=== PATIENT | female | born 1965 | race Caucasian/White ===

== ENCOUNTER → 2016-09-21 | Outpatient (CLI) | payer OTHER | LOC: FIMAGING 15:47 | PROVIDERS: ATTEND Obstetrics & Gynecology Gynecology | DX: Z12.31 Encounter for screening mammogram for malignant neoplasm of breast (principal) | CPT/HCPCS: G0202 ==

== ENCOUNTER → 2017-05-28 | Outpatient (CLI) | payer OTHER | LOC: FIMAGING 08:29 | PROVIDERS: ATTEND Internal Medicine | DX: F45.8 Other somatoform disorders (principal) ==

== ENCOUNTER → 2017-07-05 | Outpatient (CLI) | payer OTHER ==
[~2017-07-05] MED LIST: IOPAMIDOL (ISOVUE 370) 100 ML BTL IV ONE
== END ==
LOC: FIMAGING 15:55
PROVIDERS: ATTEND Internal Medicine
DX: R13.19 Other dysphagia (principal); Q27.8 Other specified congenital malformations of peripheral vascular system; M25.78 Osteophyte, vertebrae
CPT/HCPCS: Q9967

== ENCOUNTER → 2017-09-28 | Outpatient (CLI) | payer OTHER | DX: Z12.31 Encounter for screening mammogram for malignant neoplasm of breast (principal) ==

== ENCOUNTER 2018-04-27 12:23 | Observation (INO) | payer OTHER ==
[2018-04-27] MEDS ORDERED: NS 500 ML IV ONE (13:10)
[2018-04-27] MEDS ORDERED: ONDANSETRON 4 MG/2 ML VIAL IVP ONE (13:10)
--- NOTE | 2018-04-27 13:30 | EDPHY ---
H & P Time Seen by Provider: 04/27/18 12:57 HPI/ROS: HPI Abdominal pain and bloating. 52-year-old female by private vehicle. This patient reports that since 5:00 p.m. Yesterday she has had a sensation of mid and lower abdominal pain, discomfort and bloating. She reports that this pain localizes to her right lower quadrant. This morning she had nausea with 1 episode of nonbilious, nonbloody vomiting. She has not had diarrhea. She reports that she gave herself an enema this morning and had a satisfying bowel movement without relief. Her last meal was last night. Prior abdominal surgical history includes hysterectomy. Last meal was an avocado at 10:30 a.m. This morning. This consisted of an avocado. ROS: Constitutional: No fever, no chills. No weakness. Eyes: No discharge. No changes in vision. ENT: No sore throat. No nasal congestion or rhinorrhea. Respiratory: No cough. No shortness of breath. Cardiac: No chest pain, no palpitations. Gastrointestinal: As above, no diarrhea. Genitourinary: No hematuria. No dysuria or increased frequency with urination. Musculoskeletal: No back pain. No neck pain. No myalgias or arthralgias. Skin: No rashes. Neurological: No headache. No focal weakness or altered sensation. Past medical history: Hysterectomy. Social history: Nonsmoker. Here by herself. No alcohol. Physical Exam: General Appearance: Alert, no distress. This patient is responding to questions appropriately and in full sentences. This patient appears well- hydrated and well-nourished. Eyes: Pupils equal and round no pallor or injection. No lid edema, erythema or injection. Respiratory: There are no retractions, lungs are clear to auscultation with good air movement bilaterally. Cardiovascular: Regular rate and rhythm. No murmur. Gastrointestinal: Abdomen is soft with mild to moderate right lower quadrant tenderness on palpation, no masses, bowel sounds normal. No focal tenderness at McBurney's point. No Bradshaw sign. Neurological: Motor sensory function is grossly intact. Cranial nerves are normal. Gait is normal. Skin: Warm and dry, no rashes. Musculoskeletal: Neck is supple and nontender. Extremities are symmetrical. All joints range without pain or impingement. Psychiatric: No agitation. No depression. Database: EKG: Imaging: CT abdomen and pelvis with IV contrast: Significant for acute appendicitis. The appendix measures 14 mm in diameter. Marked periappendiceal inflammatory changes and a significant amount of free fluid. Results were discussed with staff radiologist Dr. Kieran Almeida. Procedures: Emergency department course: Triage vital signs reviewed. She is mildly tachycardic. Vital signs are otherwise within normal limits. IV was placed. She was started on IV normal saline with 500 cc to 1 L to be given over the next hour. She declines pain medication at this time. Her presentation is concerning for possible appendicitis. CT imaging to be obtained. She endorses. 2:20 p.m., patient currently comfortable. Blood work reviewed. Patient awaiting CT imaging to evaluate for appendicitis. 3:50 p.m., patient re-evaluated. Results of CT scan discussed with her, diagnosis of appendicitis discussed. Plan for operative management reviewed. General surgery paged. The patient will be given 2 g of IV Mefoxin in the emergency department. 4:00 p.m., spoke with on-call general surgeon Dr. Jamie Almeida. Case discussed with him in detail. He will see this patient in the emergency department shortly. 4:15 p.m., the patient's remaining emergency department course under my care has been uneventful. The patient was admitted under the care of Dr. Almeida in stable condition. Differential Diagnosis: The differential diagnosis on this patient includes but is not limited to constipation, appendicitis, enteritis. This represents a partial list of diagnoses considered. These considerations are based on history, physical exam , past history, reassessment and diagnostic testing. Smoking Status: Never smoked Constitutional: Initial Vital Signs Temperature (C) 37.2 C 04/27/18 12:39 Heart Rate 105 H 04/27/18 12:39 Respiratory Rate 16 04/27/18 12:39 Blood Pressure 112/78 04/27/18 12:39 O2 Sat (%) 97 04/27/18 12:39 O2 Delivery Mode Room Air Allergies/Adverse Reactions: No Known Allergies Allergy (Verified 04/27/18 12:39) Home Medications: Medication Instructions Recorded NK [No Known Home Meds] 01/13/16 Medical Decision Making - Diagnostics Imaging Results: Imaging Impressions Abdomen CT 04/27/18 14:18 Impression: Acute appendicitis/periappendicitis with free fluid and extensive inflammatory changes along the caudal right paracolic gutter and evidence of an appendicolith. There is no evidence of pneumoperitoneum, or rim-enhancing abscess. Findings were discussed with Emelia Coto MD at 15:43, on 04/27/2018. - Data Points Laboratory Results: Laboratory Results 04/27/18 13:05 04/27/18 13:05 04/27/18 04/27/18 04/27/18 13:46 13:05 13:05 WBC 19.70 10^3/uL H 10^3/uL (3.80-9.50) RBC 5.00 10^6/uL 10^6/uL (4.18-5.33) Hgb 14.6 g/dL g/dL (12.6-16.3) Hct 42.7 % % (38.0-47.0) MCV 85.4 fL fL (81.5-99.8) MCH 29.2 pg pg (27.9-34.1) MCHC 34.2 g/dL g/dL (32.4-36.7) RDW 12.7 % % (11.5-15.2) Plt Count 220 10^3/uL 10^3/uL (150-400) MPV 11.1 fL fL (8.7-11.7) Neut % (Auto) 84.5 % H % (39.3-74.2) Lymph % (Auto) 7.4 % L % (15.0-45.0) [place] % (Auto) 7.2 % % (4.5-13.0) Eos % (Auto) 0.2 % L % (0.6-7.6) Baso % (Auto) 0.3 % % (0.3-1.7) Nucleat RBC Rel Count 0.0 % % (0.0-0.2) Absolute Neuts (auto) 16.67 10^3/uL H 10^3/uL (1.70-6.50) Absolute Lymphs (auto) 1.45 10^3/uL 10^3/uL (1.00-3.00) Absolute Monos (auto) 1.42 10^3/uL H 10^3/uL (0.30-0.80) Absolute Eos (auto) 0.03 10^3/uL 10^3/uL (0.03-0.40) Absolute Basos (auto) 0.05 10^3/uL 10^3/uL (0.02-0.10) Absolute Nucleated RBC 0.00 10^3/uL 10^3/uL (0-0.01) Immature Gran % 0.4 % % (0.0-1.1) Immature Gran # 0.08 10^3/uL 10^3/uL (0.00-0.10) Sodium 135 mEq/L mEq/L (135-145) Potassium 3.7 mEq/L mEq/L (3.5-5.2) Chloride 97 mEq/L mEq/L (97-110) Carbon Dioxide 25 mEq/l mEq/l (22-31) Anion Gap 13 mEq/L mEq/L (6-14) BUN 9 mg/dL mg/dL (7-23) Creatinine 0.8 mg/dL mg/dL (0.6-1.0) Estimated GFR > 60 Glucose 92 mg/dL mg/dL (70-100) Calcium 9.4 mg/dL mg/dL (8.5-10.4) Total Bilirubin 1.0 mg/dL mg/dL (0.1-1.4) Conjugated Bilirubin 0.1 mg/dL mg/dL (0.0-0.5) Unconjugated Bilirubin 0.9 mg/dL mg/dL (0.0-1.1) AST 20 IU/L IU/L (14-46) ALT 16 IU/L IU/L (9-52) Alkaline Phosphatase 91 IU/L IU/L (38-126) Total Protein 8.0 g/dL g/dL (6.3-8.2) Albumin 4.7 g/dL g/dL (3.5-5.0) Urine Color YELLOW Urine Appearance CLEAR Urine pH 7.0 (5.0-7.5) Ur Specific [place] 1.005 (1.002-1.030) Urine Protein NEGATIVE (NEGATIVE) Urine Ketones TRACE H (NEGATIVE) Urine Blood NEGATIVE (NEGATIVE) Urine Nitrate NEGATIVE (NEGATIVE) Urine Bilirubin NEGATIVE (NEGATIVE) Urine Urobilinogen NEGATIVE EU EU (0.2-1.0) Ur Leukocyte Esterase NEGATIVE (NEGATIVE) Urine RBC 1-3 /hpf /hpf (0-3) Urine WBC 1-3 /hpf /hpf (0-3) Ur Epithelial Cells TRACE /lpf /lpf (NONE-1+) Urine Glucose NEGATIVE (NEGATIVE) Medications Given: Discontinued Medications Sodium Chloride (Ns) 500 mls @ 0 mls/hr IV EDNOW ONE; Wide Open PRN Reason: Protocol Stop: 04/27/18 13:11 Last Admin: 04/27/18 13:24 Dose: 500 mls Ondansetron HCl (Zofran) 4 mg IVP EDNOW ONE Stop: 04/27/18 13:11 Last Admin: 04/27/18 13:57 Dose: Not Given Departure - Departure Disposition: [facility] Inpatient Acute Clinical Impression: Lower abdominal pain, Acute appendicitis Referrals: Clarice Page MD [Primary Care Provider] - As per Instructions
[2018-04-27 13:44] LABS: PLATELET COUNT 220 10^3/uL (150-400)
[2018-04-27] MEDS ORDERED: IOPAMIDOL (ISOVUE-300) 100 ML BTL ONE (14:44)
[2018-04-27] MEDS ORDERED: cefOXitin SODIUM 2 GM in NS 100 ML IV ONE (15:50)
[2018-04-27] MEDS ORDERED: ACETAMINOPHEN 325 MG TAB PO PRN (16:35)
[2018-04-27] MEDS ORDERED: HYDROmorphONE/DILAUDID 1 MG/ML INJ IVP PRN (16:36)
--- NOTE | 2018-04-27 16:41 | PDGENHP ---
History and Physical - Chief Complaint abd pain - History of Present Illness 52 y/o female with one day hx abd pain localizing to RLQ. She was seen in the ED by Dr. Rogers and surgical consult was requested after she was confirmed to have appendicitis by CT History Information - Allergies/Home Medication List Allergies/Adverse Reactions: hydrocodone Allergy (Verified 04/27/18 16:29) Other-Enter Comments Home Medications: Ibuprofen [Motrin (*)] 200 - 600 mg PO DAILY PRN 04/27/18 [Last Taken Unknown] Loratadine [Claritin 10 mg] 10 mg PO DAILY PRN 04/27/18 [Last Taken Unknown] I have personally reviewed and updated: family history, medical history, social history, surgical history - Past Medical History no pertinent PMH - Surgical History Reports: hysterectomy - Family History Positive for: non-pertinent - Social History Smoking Status: Never smoked Alcohol Use: Occasionally Drug Use: None Additional social history: 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 Review of Systems Review of Systems: Gastrointestinal: Reports: abdominal pain, abdominal distention, nausea Genitourinary: Reports: no symptoms Physical Exam Physical Exam: Temp Pulse Resp BP Pulse Ox 38.0 C 110 H 16 131/80 H 95 04/27/18 16:00 04/27/18 16:00 04/27/18 16:00 04/27/18 16:00 04/27/18 16:00 Constitutional: no apparent distress Eyes: anicteric sclera Cardiovascular: regular rate and rhythym, no murmur, rub, or gallop Respiratory: no respiratory distress, no rales or rhonchi, clear to auscultation Gastrointestinal: tenderness (RLQ, negative Rovsing's, hypoactive bowel sound, no mass, mild guarding) Skin: warm, normal color Lab Data & Imaging Review 04/27/18 13:05 04/27/18 13:05 WBC 19.70 10^3/uL (3.80-9.50) H 04/27/18 13:05 RBC 5.00 10^6/uL (4.18-5.33) 04/27/18 13:05 Hgb 14.6 g/dL (12.6-16.3) 04/27/18 13:05 Hct 42.7 % (38.0-47.0) 04/27/18 13:05 MCV 85.4 fL (81.5-99.8) 04/27/18 13:05 MCH 29.2 pg (27.9-34.1) 04/27/18 13:05 MCHC 34.2 g/dL (32.4-36.7) 04/27/18 13:05 RDW 12.7 % (11.5-15.2) 04/27/18 13:05 Plt Count 220 10^3/uL (150-400) 04/27/18 13:05 MPV 11.1 fL (8.7-11.7) 04/27/18 13:05 Neut % (Auto) 84.5 % (39.3-74.2) H 04/27/18 13:05 Lymph % (Auto) 7.4 % (15.0-45.0) L 04/27/18 13:05 [place] % (Auto) 7.2 % (4.5-13.0) 04/27/18 13:05 Eos % (Auto) 0.2 % (0.6-7.6) L 04/27/18 13:05 Baso % (Auto) 0.3 % (0.3-1.7) 04/27/18 13:05 Nucleat RBC Rel Count 0.0 % (0.0-0.2) 04/27/18 13:05 Absolute Neuts (auto) 16.67 10^3/uL (1.70-6.50) H 04/27/18 13:05 Absolute Lymphs (auto) 1.45 10^3/uL (1.00-3.00) 04/27/18 13:05 Absolute Monos (auto) 1.42 10^3/uL (0.30-0.80) H 04/27/18 13:05 Absolute Eos (auto) 0.03 10^3/uL (0.03-0.40) 04/27/18 13:05 Absolute Basos (auto) 0.05 10^3/uL (0.02-0.10) 04/27/18 13:05 Absolute Nucleated RBC 0.00 10^3/uL (0-0.01) 04/27/18 13:05 Immature Gran % 0.4 % (0.0-1.1) 04/27/18 13:05 Immature Gran # 0.08 10^3/uL (0.00-0.10) 04/27/18 13:05 Sodium 135 mEq/L (135-145) 04/27/18 13:05 Potassium 3.7 mEq/L (3.5-5.2) 04/27/18 13:05 Chloride 97 mEq/L (97-110) 04/27/18 13:05 Carbon Dioxide 25 mEq/l (22-31) 04/27/18 13:05 Anion Gap 13 mEq/L (6-14) 04/27/18 13:05 BUN 9 mg/dL (7-23) 04/27/18 13:05 Creatinine 0.8 mg/dL (0.6-1.0) 04/27/18 13:05 Estimated GFR > 60 04/27/18 13:05 Glucose 92 mg/dL (70-100) 04/27/18 13:05 Calcium 9.4 mg/dL (8.5-10.4) 04/27/18 13:05 Total Bilirubin 1.0 mg/dL (0.1-1.4) 04/27/18 13:05 Conjugated Bilirubin 0.1 mg/dL (0.0-0.5) 04/27/18 13:05 Unconjugated Bilirubin 0.9 mg/dL (0.0-1.1) 04/27/18 13:05 AST 20 IU/L (14-46) 04/27/18 13:05 ALT 16 IU/L (9-52) 04/27/18 13:05 Alkaline Phosphatase 91 IU/L (38-126) 04/27/18 13:05 Total Protein 8.0 g/dL (6.3-8.2) 04/27/18 13:05 Albumin 4.7 g/dL (3.5-5.0) 04/27/18 13:05 Urine Color YELLOW 04/27/18 13:46 Urine Appearance CLEAR 04/27/18 13:46 Urine pH 7.0 (5.0-7.5) 04/27/18 13:46 Ur Specific [place] 1.005 (1.002-1.030) 04/27/18 13:46 Urine Protein NEGATIVE (NEGATIVE) 04/27/18 13:46 Urine Ketones TRACE (NEGATIVE) H 04/27/18 13:46 Urine Blood NEGATIVE (NEGATIVE) 04/27/18 13:46 Urine Nitrate NEGATIVE (NEGATIVE) 04/27/18 13:46 Urine Bilirubin NEGATIVE (NEGATIVE) 04/27/18 13:46 Urine Urobilinogen NEGATIVE EU (0.2-1.0) 04/27/18 13:46 Ur Leukocyte Esterase NEGATIVE (NEGATIVE) 04/27/18 13:46 Urine RBC 1-3 /hpf (0-3) 04/27/18 13:46 Urine WBC 1-3 /hpf (0-3) 04/27/18 13:46 Ur Epithelial Cells TRACE /lpf (NONE-1+) 04/27/18 13:46 Urine Glucose NEGATIVE (NEGATIVE) 04/27/18 13:46 Visualized and Interpreted imaging results: Yes Interpretation: acute appendicitis with demario-appendiceal fluid Assessment & Plan Assessment: Acute appendicitis (Acute) Plan: I recommended laparoscopic appendectomy. We discussed the procedure, expected risks and benefits as well as the alternative of antibiotic therapy alone. Informed consent was obtained. IV Fluids
[2018-04-27] MEDS ORDERED: LR 1,000 ML IV ONE (16:46)
[2018-04-27] MEDS ORDERED: LR 1,000 ML IV SCH ×2 (17:00→21:00)
[2018-04-27] MEDS ORDERED: MIDAZOLAM 2 MG/2 ML VIAL IVP ONE (19:25)
--- NOTE | 2018-04-27 19:25 | PDANEPAE ---
ANE History of Present Illness 52 yrear old with appendicitis ANE Past Medical History - Cardiovascular History Hx Hypertension: No Hx Arrhythmias: No Hx Chest Pain: No Hx Coronary Artery / Peripheral Vascular Disease: No Hx CHF / Valvular Disease: No Hx Palpitations: No - Pulmonary History Hx COPD: No Hx Asthma/Reactive Airway Disease: No Hx Recent Upper Respiratory Infection: No Hx Oxygen in Use at Home: No Hx Sleep Apnea: No - Neurologic History Hx Cerebrovascular Accident: No Hx Seizures: No Hx Dementia: No - Endocrine History Hx Diabetes: No - Renal History Hx Renal Disorders: No - Liver History Hx Hepatic Disorders: No - Neurological & Psychiatric Hx Hx Neurological and Psychiatric Disorders: No - Cancer History Hx Cancer: No - Congenital Disorder History Hx Congenital Disorders: No - GI History Hx Gastrointestinal Disorders: No - Other Health History Other Health History: NONE - Chronic Pain History Chronic Pain: No - Surgical History Prior Surgeries: L LESLIE RECONSTRUCTION 2010, MICHAEL Review of Systems Review of systems is: negative Review of Systems: ANE Patient History - Allergies Allergies/Adverse Reactions: hydrocodone Allergy (Verified 04/27/18 16:29) Other-Enter Comments - Home Medications Home medications: home medication list seen and reviewed Home Medications: Ibuprofen [Motrin (*)] 200 - 600 mg PO DAILY PRN 04/27/18 [Last Taken Unknown] Loratadine [Claritin 10 mg] 10 mg PO DAILY PRN 04/27/18 [Last Taken Unknown] - NPO status NPO Status: no food or drink >8 hours NPO Since - Liquids (Date): 04/27/18 NPO Since - Liquids (Time): 11:00 NPO Since - Solids (Date): 04/27/18 NPO Since - Solids (Time): 10:39 - Anes Hx Anes Hx: no prior problems - Smoking Hx Smoking Status: Never smoked - Alcohol Use Alcohol Use: Occasionally - Family Anes Hx Family Hx Anesthesia Complications: NONE ANE Labs/Vital Signs - Labs Result Diagrams: 04/27/18 13:05 04/27/18 13:05 - Vital Signs Blood Pressure: 128/82 Heart Rate: 86 Respiratory Rate: 16 O2 Sat (%): 96 Height: 170.18 cm Weight: 74.843 kg ANE Physical Exam - Airway Neck exam: FROM Mallampati Score: Class 1 Mouth exam: normal dental/mouth exam - Pulmonary Pulmonary: no respiratory distress - Cardiovascular Cardiovascular: regular rate and rhythym - ASA Status ASA Status: II ANE Anesthesia Plan Anesthesia Plan: general endotracheal anesthesia
[2018-04-27] MEDS ORDERED: BUPIVACAINE 0.25% 30 ML SDV ONE (19:31)
[2018-04-27] MEDS ORDERED: fentaNYL 250 MCG/5 ML INJ ONE (19:46)
[2018-04-27] MEDS ORDERED: ONDANSETRON 4 MG/2 ML VIAL ONE (19:47)
[2018-04-27] MEDS ORDERED: PROPOFOL 200 MG/20 ML VIAL ONE (19:47)
[2018-04-27] MEDS ORDERED: ROCURONIUM 50 MG/5 ML VIAL ONE (19:47)
[2018-04-27] MEDS ORDERED: LIDOCAINE 2% 5 ML SDV ONE (19:47)
[2018-04-27] MEDS ORDERED: KETOROLAC 30 MG/1 ML SDV ONE (19:48)
--- NOTE | 2018-04-27 20:43 | POSTOPPROG ---
Post Op Note Date of Operation: 04/27/18 Surgeon: Jamie Almeida (, FACS) Anesthesiologist: Bruno Israel MD Anesthesia: GET(General Endotracheal) Pre-op Diagnosis: acute appendicitis Procedure: lap appendectomy Findings: acute appendicitis with demario-appendicitis Inf/Abcess present in the surg proc area at time of surgery?: Yes Depth: Organ Space EBL: Minimal (10 ml)
[2018-04-27] MEDS ORDERED: ONDANSETRON 4 MG/2 ML VIAL IVP PRN (20:44)
[2018-04-27] MEDS ORDERED: HYDROmorphONE/DILAUDID 2 MG/ML INJ IVP PRN (20:44)
[2018-04-27] MEDS ORDERED: PROMETHAZINE HCL 25 MG/ML INJ IVP PRN (20:44)
[2018-04-27] MEDS ORDERED: fentaNYL 100 MCG/2 ML INJ IVP PRN (20:44)
[2018-04-27] MEDS ORDERED: NALOXONE HCL 0.4 MG/ML INJ IVP PRN (20:44)
--- NOTE | 2018-04-27 20:46 | POSTANESTH ---
Post Anesthetic Evaluation Cardiovascular Status: Normal, Stable Respiratory Status: Normal, Stable Level of Consciousness/Mental Status: Can Participate in Eval Pain Control: Adequate, Prn Tx Ordered Nausea/Vomiting Control: Adequate, Prn Tx Ordered Complications Possibly Related to Anesthesia: None Noted
[2018-04-27] MEDS ORDERED: ACETAMINOPHEN 325 MG TAB ONE (20:57)
[2018-04-27] MEDS: cefOXitin SODIUM 2 GM in NS 100 ML IV SCH (22:35)
[2018-04-28] MEDS ORDERED: IBUPROFEN 600 MG TAB PO SCH (02:30)
[2018-04-28] MEDS: cefOXitin SODIUM 2 GM in NS 100 ML IV SCH (04:47)
--- NOTE | 2018-04-28 06:54 | PDDCSUM ---
Discharge Summary Discharge Summary: #[id number] Hilario Almeida MD, FACS
--- NOTE | 2018-04-28 07:50 | GOP ---
[f rep st] OPERATIVE REPORT DATE OF OPERATION: SURGEON: Jamie Almeida MD, FACS ANESTHESIA: General endotracheal. ANESTHESIOLOGIST: Bruno Israel MD. PREOPERATIVE DIAGNOSIS: Acute appendicitis. POSTOPERATIVE DIAGNOSIS: Acute appendicitis and periappendicitis. PROCEDURE PERFORMED: Laparoscopic appendectomy. FINDINGS: Acute suppurative appendicitis with periappendicitis. ESTIMATED BLOOD LOSS: 10 cc. DESCRIPTION OF PROCEDURE: After informed consent was obtained, the patient was brought to the operating room and placed under general anesthesia. The abdomen was prepped and draped in the usual fashion. Before proceeding, a time-out and identification of the patient was performed. 0.25% Marcaine was used to infiltrate all incisions. A longitudinal incision was made through the base of the umbilicus and carried through the skin and subcutaneous tissues. Ventral traction was applied to the abdominal wall, as a Veress needle was introduced into the peritoneal cavity. Position was confirmed by saline infusion. A pneumoperitoneum was established with CO2 gas to a pressure of 15 mmHg. The Veress needle was withdrawn and replaced with a 5 mm bladeless trocar. A 30 degree scope was introduced and the peritoneal cavity was visualized. An additional 5 mm port was placed in the suprapubic position and a 12 mm port in the left lower quadrant under direct visualization. This allowed introduction of atraumatic grasping forceps. The cecum was manipulated and rotated medially. The appendix came into view and was grasped and retracted gently in a ventral fashion. The mesoappendix was dispatched with a Harmonic Scalpel and the appendix from the cecum with a single firing of the GRISELDA stapler. The appendix was retrieved through the left lower quadrant port site using an Endopouch. The operative area was irrigated and aspirated. Hemostasis appeared secure. The left lower quadrant port site was closed with a transfascial closure needle and 0 Vicryl suture. The pneumoperitoneum was evacuated. The remaining ports were removed. Subcutaneous tissues were closed with 3-0 Monocryl suture. Skin was closed with 4-0 Monocryl suture in a subcuticular fashion. Topical Dermabond was applied. Patient was returned extubated to the recovery room in satisfactory condition. Needle, sponge, and instrument count correct. COMPLICATIONS: None. /[id number]/MODL MTDD
[2018-04-28 08:21] VITALS: BP 96/60
[2018-04-28] MEDS ORDERED: ENOXAPARIN 40 MG/0.4 ML SYR SC SCH (09:00)
--- NOTE | 2018-04-28 09:35 | GDS ---
[f rep st] DISCHARGE SUMMARY DISCHARGE DIAGNOSIS: Acute appendicitis. PROCEDURE PERFORMED: 04/27, laparoscopic appendectomy. HOSPITAL COURSE: For details of admission history and physical, please see dictated summary. Briefl y, the patient is an otherwise healthy 52-year-old female who presented with a 1-day history of abdom inal pain and was confirmed to have appendicitis on CT. Surgical consultation was requested. She re ceived 2 g of cefoxitin and was brought to the operating room for a laparoscopic appendectomy. She w as found to have acute appendicitis with periappendicitis, but no evidence of gangrene or perforation . She received 2 additional doses of cefoxitin postoperatively, and antibiotics were discontinued. She remained afebrile after surgery, was advanced in her diet. Her incisions were healing well witho ut sign of infection, and she was ambulatory. She was instructed in diet and activity advancement, w ill follow up in my office within 1-2 weeks for incisional check. CONDITION AT TIME OF DISCHARGE: Improved. DISCHARGE MEDICATIONS: Ibuprofen 600 mg p.o. q.8 hours p.r.n. pain, Tylenol 650-1000 mg every 8 hour s p.r.n. pain or fever, tramadol 50 mg p.o. q.6 hours p.r.n. pain, #10. She will resume loratadine 1 0 mg p.o. daily p.r.n. Of note, patient did not require any narcotic analgesics after surgery. /[id number]/MODL
== END 2018-04-28 10:02 | disposition home or self-care (01) ==
LOC: F3E 21:22
PROVIDERS: ADMIT Surgery; ATTEND Surgery
PROC: 0DTJ4ZZ Resection of Appendix, Percutaneous Endoscopic Approach (ICD-10-PCS; principal; 2018-04-27 17:15)
DX: K35.80 Unspecified acute appendicitis (principal); E86.0 Dehydration
CPT/HCPCS: 96365; G0378; J0694; J1885; J2405; J2704; J3010; Q9967